=== PATIENT | female | born 1940 | race Caucasian/White ===

== ENCOUNTER 2023-10-06 08:48 | Outpatient (RCR) | payer OTHER, SELFPAY | END 2023-10-08 14:46 | disposition home or self-care (01) | LOC: RPT 08:48 | PROVIDERS: ATTENDING PHYSICIAN Internal Medicine; FAMILY PHYSICIAN Nurse Practitioner Adult Health | DX: M54.16 Radiculopathy, lumbar region (principal); Z73.6 Limitation of activities due to disability | CPT/HCPCS: 97110 ==

== ENCOUNTER → 2023-11-26 13:23 | Outpatient (REF) | payer OTHER, SELFPAY | LOC: RAD 13:23 | PROVIDERS: ATTENDING PHYSICIAN Nurse Practitioner Adult Health | DX: R05.1 Acute cough (principal) | CPT/HCPCS: 71046 ==

== ENCOUNTER → 2023-12-09 13:25 | Outpatient (REF) | payer OTHER, SELFPAY | LOC: RAD 13:25 | PROVIDERS: ATTENDING PHYSICIAN Nurse Practitioner Adult Health | DX: R39.9 Unspecified symptoms and signs involving the genitourinary system (principal); M54.50 Low back pain, unspecified; R10.32 Left lower quadrant pain | CPT/HCPCS: 76770 ==

== ENCOUNTER → 2024-03-21 10:37 | Outpatient (REF) | payer OTHER, SELFPAY | LOC: WDC 10:37 | PROVIDERS: ATTENDING PHYSICIAN Nurse Practitioner Adult Health | DX: Z12.31 Encounter for screening mammogram for malignant neoplasm of breast (principal) | CPT/HCPCS: 77063; 77067 ==

== ENCOUNTER → 2024-06-01 09:39 | Outpatient (REF) | payer OTHER, SELFPAY | LOC: PAVMRI 09:39 | PROVIDERS: ATTENDING PHYSICIAN Orthopaedic Surgery | DX: M54.16 Radiculopathy, lumbar region (principal) | CPT/HCPCS: 72148 ==

== ENCOUNTER → 2024-07-06 11:53 | Outpatient (REF) | payer OTHER, SELFPAY | LOC: RAD 11:53 | PROVIDERS: ATTENDING PHYSICIAN Nurse Practitioner Adult Health | DX: Z01.810 Encounter for preprocedural cardiovascular examination (principal); R09.89 Other specified symptoms and signs involving the circulatory and respiratory systems | CPT/HCPCS: 93975 ==

== ENCOUNTER → 2024-07-10 08:54 | Outpatient (REF) | payer OTHER, SELFPAY | LOC: HWRAD 08:54 | PROVIDERS: ATTENDING PHYSICIAN Nurse Practitioner Adult Health | DX: R09.89 Other specified symptoms and signs involving the circulatory and respiratory systems (principal) | CPT/HCPCS: 36415; 74174; Q9967 ==

== ENCOUNTER 2024-07-12 06:26 | Day surgery (SDC) | payer OTHER, SELFPAY ==
[2024-06-22 12:45] VITALS: BMI 24.6
[2024-06-22 14:09] LABS: Hematocrit 40.8 % (37.0-47.0); Hemoglobin 14.2 g/dL (12.0-16.0); Mean Corp Hgb Conc. 34.8 g/dL (33.0-37.0); Mean Corpuscular Hgb 32.5 pg (27.0-31.0); Mean Corpuscular Volume 93.4 fL (81.0-99.0); Mean Platelet Volume 10.3 fL (7.4-10.4); Platelet Count 232 10^3/uL (130-400); Red Blood Cell Count 4.37 10^6/uL (4.20-5.40); Red Cell Dist. Width 12.3 % (11.5-14.5); White Blood Cell Count 6.3 10^3/uL (4.8-10.8)
[2024-06-22 14:15] LABS: ALT (SGPT) 28 U/L (0-35); AST (SGOT) 39 U/L (14-36); Albumin 4.6 g/dl (3.5-5.0); Alkaline Phosphatase 85 U/L (38-126); Blood Urea Nitrogen 32 mg/dl (7-17); Calcium 9.9 mg/dl (8.4-10.2); Carbon Dioxide 27 mmol/L (22-30); Chloride 103 mmol/L (98-107); Estimated Creatinine Clearance 40 ml/min; Glucose 156 mg/dl (70-99); Potassium 4.2 mmol/L (3.5-5.1); Sodium 141 mmol/L (135-145); Total Bilirubin 0.7 mg/dl (0.2-1.3)
[2024-06-23 09:28] LABS: Glycohemoglobin (HgbA1c) 5.3 % (4.0-5.6)
--- NOTE | 2024-07-11 15:43 | PTCARENOTE ---
Abnormal EKG. Dr. Biswas aware. No intervention required.
--- NOTE | 2024-07-11 16:19 | VNURNOTE ---
Chart reviewed. SDS / PSR 07/[address] Bingham. Call placed to patient to inquire about post-op plans: [facility]. No answer.
[2024-07-12] VITALS (23 sets, daily range): BP systolic 96–170; BP diastolic 49–94; PULSE 95; O2SAT 96; BMI 24.6
[2024-07-12] MEDS: TYLENOL 650 MG PO ×4 (07:36→23:40)
[2024-07-12] MEDS: CELEBREX 200 MG PO (07:37)
[2024-07-12] MEDS: NORMOSOL-R/PLASMALYTE-A 1000 IV (08:01)
[2024-07-12] MEDS: ROXICODONE 5 MG PO ×3 (11:53→23:58)
[2024-07-12] MEDS: NSS 1000 IV (12:06)
[2024-07-12] MEDS: MORPHINE SULFATE 1 MG IV ×2 (12:13→12:20)
[2024-07-12] MEDS: DILAUDID 0.25 MG IV (13:44)
--- NOTE | 2024-07-12 14:05 | W.PN.ORTHO ---
Today's Communication / Plan
-
D/c when clinically stable
Assessment
.
Distal Motor Intact: Yes
Dressing:
Scant areas of incisional bleeding.
Assessment:
L knee OA s/p L TKA w/ Dr Bingham 07/12/24
- s/p R TKA, 12/2021, and R JESUS, 04/2021, by Dr Bradley Bingham
DVT prophylaxis - ASA, b/l venous foot pumps
HTN - + parameters - monitor BP
CKD 3 - minimize nephrotoxins
Splenic lesions of unknown etiology on abdominal/pelvic CTA 06/2024 - abdominal MRI w/u in near future
Chronically elevated AST - reduce max daily dose of Tylenol
Hyperlipidemia
Aortic atherosclerosis
Diverticulitis, status post sigmoidectomy
Small bowel obstruction secondary to adhesions, status post laparoscopic lysis of adhesions
Migraines
Multilevel DDD
Glaucoma
Depression
Anxiety
Osteopenia
Plan
.
Surgery / Date: L TKA w/ Dr Bingham 07/12/24
DVT Prophylaxis: Aspirin
Activity:
Out of bed.
PT/OT
Discharge Plan: Home w/ Outpatient PT
Subjective
.
.:
Patient examined resting in PACU.
L knee/thigh pain 03/27 but medicated recently w/ IV Dilaudid.
Denies any other new significant complaints.
Vital Signs and Labs
.
Vital Signs and Labs:
Lab Results
06/22/24 12:52
06/22/24 12:52
Temp Pulse Resp BP Pulse Ox
95.9 F L 76 13 123/62 97
07/12/24 07:44 07/12/24 10:00 07/12/24 10:00 07/12/24 10:00 07/12/24 10:00
Physical Exam
-
HEENT: No pallor, cyanosis, or jaundice. Throat clear.
NECK: Supple. No JVD.
RESPIRATORY: Lungs clear to auscultation.
CVS: S1, S2 normal. RRR.�
ABDOMEN: Soft, non-tender. No distension.
EXTREMITIES: Strength equal, no calf pain with palpation/dorsiflexion. Calves soft
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 No focal deficits. client advisor grossly intact
[2024-07-12] MEDS: TORADOL 15 MG IV (14:14)
[2024-07-12] MEDS: TYLENOL PO (14:57)
--- NOTE | 2024-07-12 15:52 | PTCARENOTE ---
Pt received from the PACU via bed. Transport was w/o incident. Pt is AAOx3, HRR, lungs are clear, resp. easy. Pulse ox 93%RA. Pt denies nausea and reports her pain level now 3/10 on pain scale, and reports she will call nurse when she feels she
needs more pain medicine. Pt's left knee with Primaseal dressing C/D/I w/ scant spot of shadowing, no current bleeding noted. Pt instructed on plan of care. Pt verbalized understanding of instructions. Call gordillo is within reach.
[2024-07-12] MEDS: LIDOCAINE 4% PATCH 2 PATCH TOPICAL (17:20)
[2024-07-12] MEDS: ZYRTEC 10 MG PO (17:20)
[2024-07-12] MEDS: ZESTRIL 5 MG PO (17:20)
[2024-07-12] MEDS: ASPIRIN 325 MG PO (17:21)
[2024-07-12] MEDS: CRESTOR 5 MG PO (17:21)
[2024-07-12] MEDS: VITAMIN B-12 1000 MCG PO (17:23)
[2024-07-12] MEDS: VITAMIN D3 (cholecalciferol) 25 MCG PO (17:23)
[2024-07-12] MEDS: ANCEF 5 IV ×2 (17:23→23:40)
[2024-07-12] MEDS: NEURONTIN 100 MG PO ×2 (17:23→22:20)
[2024-07-12] MEDS: SENOKOT 17.2 MG PO (20:35)
[2024-07-12] MEDS: DECADRON 4 MG PO (20:35)
[2024-07-12] MEDS: COLACE 100 MG PO (20:35)
[2024-07-12] MEDS: BACTROBAN 2% OINTMENT 1 APPLIC NASAL (20:36)
[2024-07-12] MEDS: PEPCID 20 MG PO (22:20)
[2024-07-13 03:10] VITALS: BP 107/66
[2024-07-13] MEDS: ROXICODONE 5 MG PO ×2 (04:13→08:01)
[2024-07-13] MEDS: TYLENOL 650 MG PO ×2 (05:38→12:01)
[2024-07-13 07:15] VITALS: BP 102/57
[2024-07-13] MEDS: SENOKOT 17.2 MG PO (07:59)
[2024-07-13] MEDS: CRESTOR 5 MG PO (07:59)
[2024-07-13] MEDS: ASPIRIN 325 MG PO (07:59)
[2024-07-13] MEDS: NEURONTIN 100 MG PO (07:59)
[2024-07-13] MEDS: DECADRON 4 MG PO (08:00)
[2024-07-13] MEDS: ZYRTEC 10 MG PO (08:00)
[2024-07-13] MEDS: VITAMIN B-12 1000 MCG PO (08:00)
[2024-07-13] MEDS: COLACE 100 MG PO (08:00)
[2024-07-13] MEDS: VITAMIN D3 (cholecalciferol) 25 MCG PO (08:00)
[2024-07-13] MEDS: ZESTRIL PO (08:00)
[2024-07-13] MEDS: BACTROBAN 2% OINTMENT 1 APPLIC NASAL (08:01)
[2024-07-13] MEDS: LIDOCAINE 4% PATCH 2 PATCH TOPICAL (08:02)
[2024-07-13 10:57] VITALS: BP 99/57; PULSE 75; O2SAT 98
[2024-07-13 11:10] VITALS: BP 99/60
--- NOTE | 2024-07-13 12:33 | CM ---
Met with ot and her daughter at bedside
Pt reports she lives alone in a ranch-style home; 1 step to enter
Daughter plans to stay with pt initially
Pt reports independent, active, driving prior to admission
DME - rolling walker, raise toilet seat, single point cane, shower and toilet rails
SNF/HH - no past hx
Has ride at discharge
PCP - Kath Oh
Pharm - [facility]
PT recs - outpatient PT. Has appointment scheduled on Wednesday. Has Rx
Plan - home with outpatient PT
--- NOTE | 2024-07-13 13:18 | W.PN.ORTHO ---
Today's Communication / Plan
-
D/c today since clinically stable, did well w/ PT and OT.
Assessment
.
Distal Motor Intact: Yes
Dressing:
Scant areas of old incisional bleeding.
Assessment:
L knee OA s/p L TKA w/ Dr Bingham 07/12/24
- s/p R TKA, 12/2021, and R JESUS, 04/2021, by Dr Bradley Bingham
DVT prophylaxis - ASA, b/l venous foot pumps
HTN - + parameters - BPs overall stable
CKD 3 - minimize nephrotoxins
Splenic lesions of unknown etiology on abdominal/pelvic CTA 06/2024 - abdominal MRI w/u in near future
Chronically elevated AST - reduced max daily dose of Tylenol
Hyperlipidemia
Aortic atherosclerosis
Diverticulitis, status post sigmoidectomy
Small bowel obstruction secondary to adhesions, status post laparoscopic lysis of adhesions
Migraines
Multilevel DDD
Glaucoma
Depression
Anxiety
Osteopenia
Plan
.
Surgery / Date: L TKA w/ Dr Bingham 07/12/24
DVT Prophylaxis: Aspirin
Activity:
Out of bed.
PT/OT
Discharge Plan: Home w/ Outpatient PT
Subjective
.
.:
Patient resting comfortably in her chair.
L knee pain well tolerated w/ current pain meds.
Denies any new significant complaints.
Eager for potential d/c today.
Vital Signs and Labs
.
Vital Signs and Labs:
Lab Results
06/22/24 12:52
06/22/24 12:52
Temp Pulse Resp BP Pulse Ox
97.5 F 88 18 99/60 97
07/13/24 11:10 07/13/24 11:10 07/13/24 11:10 07/13/24 11:10 07/13/24 11:10
Non-invasive Hgb result: 11.4
Physical Exam
-
HEENT: No pallor, cyanosis, or jaundice. Throat clear.
NECK: Supple. No JVD.
RESPIRATORY: Lungs clear to auscultation.
CVS: S1, S2 normal. RRR.�
ABDOMEN: Soft, non-tender. No distension.
EXTREMITIES: Strength equal, no calf pain with palpation/dorsiflexion. Calves soft.
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 No focal deficits. document preparation specialist grossly intact
--- NOTE | 2024-07-13 13:30 | W.DS.TRANS ---
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
-
Discharge Instructions:
Sleep Apnea Risk Low
Discharge Diagnosis/Procedures L knee OA s/p L TKA w/ Dr Narvaez 07/13/24
Diet Other diet
Additional Diets Diabetic carb controlled x1 week for wound
healing/infection prevention
Activity As tolerated,With Walker
Driving Restrictions Not until seen by your Dr
Bathing Restrictions OK to Shower
Other Services PT
Wound Care Dressing to be removed 1 week post-surgery.
Instructions:
Stand-Alone Forms: Total Hip/Knee Replacement D/C
Changes to Home Medications: Yes
Discharge Medications:
DC Medications w/original date entered in [facility]
epinephrine 0.3 mg/0.3 mL injection, auto-injector (EpiPen) 0.3 mg (0.3 mL) IM PRN PRN prn for allergic reaction #1 mL 05/11/13
cyanocobalamin (vitamin B-12) 1,000 mcg tablet 1,000 mcg PO DAILY 04/02/21
denosumab 60 mg/mL subcutaneous syringe (Prolia) 60 mg SQ .Q6 MONTHS 04/02/21
rosuvastatin 5 mg tablet 5 mg PO DAILY 04/02/21
cetirizine 10 mg tablet 10 mg PO DAILY 12/05/21
ascorbic acid (vitamin C) 1,000 mg tablet (Vitamin C) 1,000 mg PO DAILY 07/06/24
calcium carbonate (Calcium 600) 600 mg PO DAILY 07/06/24
cholecalciferol (vitamin D3) 25 mcg (1,000 unit) capsule (Vitamin D3) 25 mcg PO DAILY 07/06/24
acetaminophen 500 mg tablet 1,000 mg (2 x 500 mg) PO Q8H #60 tabs 07/13/24
aspirin 325 mg tablet 325 mg PO DAILY #30 tabs 07/13/24
dexamethasone 4 mg tablet 4 mg PO Q12H #7 tabs 07/13/24
docusate sodium 100 mg capsule 100 mg PO BID #30 caps 07/13/24
gabapentin 100 mg capsule 100 mg PO TID neuropathic pain #30 caps 07/13/24
lidocaine 4 % topical patch 2 patch topical DAILY #30 ea 07/13/24
lisinopril 5 mg tablet 5 mg PO DAILY #1 tab 07/13/24
ondansetron HCl 4 mg tablet 4 mg PO Q6H PRN nausea and vomiting #1 tab 07/13/24
oxycodone 5 mg tablet 5 - 10 mg (1 - 2 x 5 mg) PO Q6H PRN moderate-severe pain #30 tabs 07/13/24
sennosides 8.6 mg tablet (Senna Laxative) 17.2 mg (2 x 8.6 mg) PO BID #30 tabs 07/13/24
Home Medication Changes
acetaminophen 500 mg tablet 1,000 mg (2 x 500 mg) PO Q8H #60 tabs 07/13/24
aspirin 325 mg tablet 325 mg PO DAILY #30 tabs 07/13/24
dexamethasone 4 mg tablet 4 mg PO Q12H #7 tabs 07/13/24
docusate sodium 100 mg capsule 100 mg PO BID #30 caps 07/13/24
gabapentin 100 mg capsule 100 mg PO TID neuropathic pain #30 caps 07/13/24
lidocaine 4 % topical patch 2 patch topical DAILY #30 ea 07/13/24
ondansetron HCl 4 mg tablet 4 mg PO Q6H PRN nausea and vomiting #1 tab 07/13/24
oxycodone 5 mg tablet 5 - 10 mg (1 - 2 x 5 mg) PO Q6H PRN moderate-severe pain #30 tabs 07/13/24
sennosides 8.6 mg tablet (Senna Laxative) 17.2 mg (2 x 8.6 mg) PO BID #30 tabs 07/13/24
Pending Results: No
== END 2024-07-13 14:35 | disposition home or self-care (01) ==
LOC: SDS 06:26
PROVIDERS: ATTENDING PHYSICIAN Orthopaedic Surgery; FAMILY PHYSICIAN Nurse Practitioner Adult Health
DX: M17.12 Unilateral primary osteoarthritis, left knee (principal); I12.9 Hypertensive chronic kidney disease with stage 1 through stage 4 chronic kidney disease, or unspecified chronic kidney disease; N18.30 Chronic kidney disease, stage 3 unspecified
CPT/HCPCS: 27447; 36415; 73560; 80053; 83036; 85027; 87070; 93005; 97110; 97116; 97162; 97166; 97535; C1713; C1776

== ENCOUNTER 2024-08-15 06:26 | Outpatient (RCR) | payer OTHER, SELFPAY | END 2024-08-15 23:59 | disposition home or self-care (01) | LOC: RPT 06:26 | PROVIDERS: ATTENDING PHYSICIAN Physician Assistant; FAMILY PHYSICIAN Nurse Practitioner Adult Health | DX: Z47.1 Aftercare following joint replacement surgery (principal); Z96.652 Presence of left artificial knee joint; Z73.6 Limitation of activities due to disability | CPT/HCPCS: 97010; 97110; 97140; 97162; 97530 ==

== ENCOUNTER 2024-08-22 09:50 | Outpatient (RCR) | payer OTHER, SELFPAY | END 2024-08-22 23:59 | disposition home or self-care (01) | LOC: RPT 09:50 | PROVIDERS: ATTENDING PHYSICIAN Physician Assistant; FAMILY PHYSICIAN Nurse Practitioner Adult Health | DX: Z47.1 Aftercare following joint replacement surgery (principal); M17.12 Unilateral primary osteoarthritis, left knee; Z73.6 Limitation of activities due to disability; R26.89 Other abnormalities of gait and mobility; M62.81 Muscle weakness (generalized); Z96.652 Presence of left artificial knee joint | CPT/HCPCS: 97010; 97110; 97140 ==

== ENCOUNTER → 2024-09-07 08:02 | Outpatient (REF) | payer OTHER, SELFPAY | LOC: PAVMRI 08:02 | PROVIDERS: ATTENDING PHYSICIAN Nurse Practitioner Adult Health | DX: D73.89 Other diseases of spleen (principal) | CPT/HCPCS: 74183; A9575 ==

== ENCOUNTER 2024-10-17 09:50 | Outpatient (RCR) | payer OTHER, SELFPAY | END 2024-10-17 23:59 | disposition home or self-care (01) | LOC: RPT 09:50 | PROVIDERS: ATTENDING PHYSICIAN Physician Assistant; FAMILY PHYSICIAN Nurse Practitioner Adult Health | DX: Z47.1 Aftercare following joint replacement surgery (principal); M17.12 Unilateral primary osteoarthritis, left knee; Z73.6 Limitation of activities due to disability; R26.89 Other abnormalities of gait and mobility; M62.81 Muscle weakness (generalized); Z96.652 Presence of left artificial knee joint | CPT/HCPCS: 97110; 97530 ==

== ENCOUNTER → 2024-12-14 12:17 | Outpatient (REF) | payer OTHER, SELFPAY | LOC: HWRAD 12:17 | PROVIDERS: ATTENDING PHYSICIAN Nurse Practitioner Adult Health | DX: M54.2 Cervicalgia (principal); D64.9 Anemia, unspecified; R10.32 Left lower quadrant pain; D73.89 Other diseases of spleen | CPT/HCPCS: 72040; 74176 ==

== ENCOUNTER 2025-02-15 06:22 | Day surgery (SDC) | payer OTHER, SELFPAY | END 2025-02-15 10:12 | disposition home or self-care (01) | LOC: GI 06:22 | PROVIDERS: ATTENDING PHYSICIAN Specialist | DX: R19.7 Diarrhea, unspecified (principal); K57.30 Diverticulosis of large intestine without perforation or abscess without bleeding; Z98.0 Intestinal bypass and anastomosis status | CPT/HCPCS: 45380; 88305 ==

== ENCOUNTER → 2025-04-13 11:38 | Outpatient (REF) | payer OTHER, SELFPAY | LOC: WDC 11:38 | PROVIDERS: ATTENDING PHYSICIAN Nurse Practitioner Adult Health | DX: Z12.31 Encounter for screening mammogram for malignant neoplasm of breast (principal) | CPT/HCPCS: 77063; 77067 ==

== ENCOUNTER → 2025-05-16 13:40 | Outpatient (REF) | payer OTHER, SELFPAY | LOC: RAD 13:40 | PROVIDERS: ATTENDING PHYSICIAN Internal Medicine; FAMILY PHYSICIAN Nurse Practitioner Adult Health | DX: M81.0 Age-related osteoporosis without current pathological fracture (principal) | CPT/HCPCS: 77080 ==

== ENCOUNTER → 2025-07-18 08:23 | Emergency (ER) | payer OTHER, SELFPAY ==
[2025-07-18 08:28] VITALS: BP 184/95
--- NOTE | 2025-07-18 08:40 | ED.GENMED ---
History of Present Illness
General
Chief Complaint: Blood Pressure Problem
Source: patient
Exam Limitations: none
Time Seen by Provider: 07/18/25 08:40
Nursing documentation reviewed up to this point in time: agreed with
History of Present Illness
History of Present Illness:
84-year-old female with history of HTN, diverticulitis, presents for high blood pressure. She states she woke yesterday and just 'did not feel right.' She saw her PCP Samir Oh who increased her lisinopril from 5 mg to 10 mg daily. She took
her first increased dose today and feels 'better.' Patient states she had trouble sleeping last night, just restless, thinking about admitting she was supposed to attend today and this morning when she got up felt her heart 'beating fast and got
sweaty and felt a little nauseous.' She states it feels like pressure on her chest. She denies the symptoms at this time. She denies SOB, abdominal pain, back pain. She denies weakness, numbness or tingling in her extremities. Hide good morning
Past History
Past History
ED Past Medical History: HTN and Other (History of migraines, diverticulosis, diverticulitis, history of bowel obstruction, arthritis)
ED Past Surgical History: Orthopedic (Right hip replacement, left knee replacement) and Other (Dental surgeries, and sigmoidectomy in 2006)
Social History
Tobacco: Non-smoker
Alcohol: None
Personal:
Living: other ([place])
Employment: Retired
Review of Systems
Review of Systems
Allergies reviewed?: Yes
All Other Systems: ROS reviewed and negative except as documented in HPI and ROS
Phy Exam
Physical Exam
Physical Exam:
GENERAL: No acute distress. A&Ox3.
CONSTITUTIONAL: Afebrile.
EYES: clear, conjunctivae normal
ENMT: moist mucus membranes, Pharynx nl
RESPIRATORY: Regular respirations, nonlabored, lungs clear.
CARDIOVASCULAR: Regular rate and rhythm, no murmurs, no rubs.
GI: Soft, nontender, normal BS
MUSCULOSKELETAL: Moves with ease. Well perfused.
SKIN: Warm, dry, pink
PSYCH: Normal mood and affect. Well kept, interactive and appropriate
NEUROLOGIC: Awake, alert and oriented. No focal neurological deficits
Course
Orders/Labs/Results
Orders:
Orders
07/18/25 09:16
Electrocardiogram (*1) Urgent
Reason for Study: Palpitations
EKG- Treatment ONCE
07/18/25 09:17
CR Chest - 2 Views Urgent
Comment:
Reason For Exam: palpitations
07/18/25 09:27
Comprehensive Metabolic Panel Urgent
07/18/25 09:28
Complete Blood Count/With Diff Urgent
Troponin I Urgent
Urinalysis Reflex To Culture Urgent
Date Specimen was Collected: 07/18/25
Time Specimen was Collected: 09:19
Urine Microscopic Reflex Cult Urgent
Urine Culture Urgent
TAB Source: U
Specimen Description:
Date Specimen was Collected: 07/18/25
Time Specimen was Collected: 09:19
Abnormal Lab Results
07/18/25 07/18/25
09:27 09:28
MCH 32.5 H pg
(27.0-31.0)
Lymphocytes % 20.4 L %
(20.5-51.1)
Glucose 109 H mg/dl
(70-99)
Leukocyte Esterase Rfl 1+ A
(Negative)
Urine Bacteria (Reflex) Few A
(Negative)
Urine Albumin (Reflex) 1+ A
(Neg - Trace)
07/18/25 09:28
07/18/25 09:27
Vital Signs
Initial and Last Documented VS:
Initial Vital Signs
Temp Pulse Resp BP Pulse Ox
98.4 F 82 18 184/95 97
07/18/25 08:28 07/18/25 08:28 07/18/25 08:28 07/18/25 08:28 07/18/25 08:28
Last Documented Vital Signs
Temp Pulse Resp BP Pulse Ox
98.4 F 69 15 162/67 98
07/18/25 08:28 07/18/25 10:41 07/18/25 10:41 07/18/25 11:37 07/18/25 11:40
MDM/Problems Addressed
Differential Diagnosis Includes:
CA, dehydration, UTI
MDM/Problems Addressed:
84-year-old female with history of HTN, diverticulitis, presents for high blood pressure. She states she woke yesterday and just 'did not feel right.' She saw her PCP Samir Oh who increased her lisinopril from 5 mg to 10 mg daily. She took
her first increased dose today and feels 'better.' Patient states she had trouble sleeping last night, just restless, thinking about admitting she was supposed to attend today and this morning when she got up felt her heart 'beating fast and got
sweaty and felt a little nauseous.' She states it feels like pressure on her chest. She denies the symptoms at this time. She denies SOB, abdominal pain, back pain. She denies weakness, numbness or tingling in her extremities.
She was treated for UTI 10 days ago, put on Cipro for 5 days but only finished 3 days of it as it made her nauseous.
11:30 AM:
CBC normal
CMP normal
Troponin WNL
UA negative
Chest x-ray: Pulmonary findings suggestive of changes of COPD, no acute pneumonia otherwise unremarkable
BP now 162/67
Patient has remained asymptomatic since arrival, she is stable for discharge.
*Pulse Oximetry
SaO2: 97
Patient hypoxic: no
*Critical Care Note
Total Time (30-74mins, 75-104mins- exclusive of procedures): Not Applicable
ED Attending Note
-
Portions of this chart may have been created with voice recognition software.� Occasional wrong word or��sound alike� substitutions may have occurred due to the inherent limitations of voice recognition software.
Discharge Plan
Departure
Patient Disposition: Home (Routine Discharge)
Date of Disposition: 07/18/25
Time of Disposition: 11:34
Patient with high blood pressure during this ER visit?: No
Condition: Good
Discharge Problem:
Atypical chest pain, Hypertension, Heart palpitations
Instructions: High Blood Pressure (DC), Palpitations - ED (DC)
Prescriptions:
No Action
epinephrine [EpiPen] 0.3 MG/0.3/SYRINGE auto-injector
0.3 mg IM PRN PRN (Reason: prn for allergic reaction) Qty: 1 2RF
cyanocobalamin (vitamin B-12) 1,000 MCG tablet
1,000 mcg PO DAILY
rosuvastatin 5 MG tablet
5 mg PO DAILY
Prolia 60 MG/ML syringe
60 mg SQ .Q6 MONTHS
cetirizine 10 MG tablet
10 mg PO DAILY
ascorbic acid (vitamin C) [Vitamin C] 1,000 mg Tablet
1,000 mg PO DAILY
cholecalciferol (vitamin D3) [Vitamin D3] 25 mcg (1,000 unit) Capsule
25 mcg PO DAILY
calcium carbonate [Calcium 600] 600 mg calcium (1,500 mg) Tablet
600 mg PO DAILY
docusate sodium 100 mg Capsule
100 mg PO BID Qty: 30 0RF
lidocaine 4 % Adhesive Patch,Medicated
2 patch topical DAILY Qty: 30 0RF
Rx Instructions:
Over the counter. 12 hours on, 12 hours off.
Apply to sides of left knee/thigh.
gabapentin 100 mg Capsule
100 mg PO TID Qty: 30 0RF
sennosides [Senna Laxative] 8.6 mg Tablet
17.2 mg PO BID Qty: 30 0RF
aspirin 325 mg Tablet
325 mg PO DAILY Qty: 30 0RF
Rx Instructions:
Take daily x4 weeks for blood clot prevention; then resume Aspirin 81 mg daily.
ondansetron HCl 4 mg Tablet
4 mg PO Q6H PRN (Reason: nausea and vomiting) Qty: 1 0RF
Rx Instructions:
Prescribed by surgeon's office pre-op.
acetaminophen 500 mg Tablet
1,000 mg PO Q8H Qty: 60 0RF
Rx Instructions:
DO NOT exceed >3000 mg daily.
dexamethasone 4 mg Tablet
4 mg PO Q12H Qty: 7 0RF
Rx Instructions:
Restart night of discharge and continue every 12 hours until finished.
Take with food.
lisinopril 5 MG tablet
5 mg PO DAILY Qty: 1 0RF
Rx Instructions:
HOLD IF systolic blood pressure <130 while on Oxycodone.
oxycodone 5 mg Tablet
5 - 10 mg PO Q6H PRN (Reason: moderate-severe pain) Qty: 30 0RF
Rx Instructions:
1 tab for moderate pain, 2 if severe.
Dx total joint.
Referrals:
Kath Oh CRNP [Family Provider, General]
Activity Restrictions/Additional Instructions:
As we discussed, nothing worrisome in your workup here today. Continue your lisinopril 10 mg daily.
Your blood work including kidney function is normal.
Your EKG and Chest xray show nothing worrisome.
Please discuss lab finding with your healthcare provider.
Interventions
Interventions:
*Risk Screen - Suicide Last Done: 07/18/25 08:28
*General Assessment Last Done: 07/18/25 08:28
*Neglect/Abuse Screening Last Done: 07/18/25 08:28
*Nursing Disposition Last Done: 07/18/25 11:44
Discharge Date and Time
Print Language: OCCITAN
[2025-07-18 09:30] VITALS: BP 170/73
[2025-07-18 09:40] LABS: Hematocrit 43.7 % (37.0-47.0); Hemoglobin 15.1 g/dL (12.0-16.0); Mean Corp Hgb Conc. 34.6 g/dL (33.0-37.0); Mean Corpuscular Volume 94.0 fL (81.0-99.0); Nucleated Red Blood Cells % 0 %; Platelet Count 216 10^3/uL (130-400); Red Cell Dist. Width 12.1 % (11.5-14.5)
[2025-07-18 09:55] LABS: ALT (SGPT) 25 U/L (0-35); AST (SGOT) 32 U/L (14-36); Albumin 4.5 g/dl (3.5-5.0); Alkaline Phosphatase 66 U/L (38-126); Blood Urea Nitrogen 16 mg/dl (7-17); Calcium 9.4 mg/dl (8.4-10.2); Carbon Dioxide 27 mmol/L (22-30); Chloride 106 mmol/L (98-107); Glucose 109 mg/dl (70-99); Potassium 4.8 mmol/L (3.5-5.1); Sodium 138 mmol/L (135-145); Total Protein 7.3 g/dl (6.3-8.2); eGFR 55.55
[2025-07-18 10:00] VITALS: BP 151/64
[2025-07-18 10:07] LABS: Urine Character Clear (Clear)
[2025-07-18 10:21] LABS: Troponin I < 0.012 ng/ml
[2025-07-18 10:33] LABS: Urine Squamous Cell >30 /LPF (Few)
[2025-07-18 10:35] LABS: Urine Red Blood Cell 0-2 /HPF (0-2)
[2025-07-18 11:37] VITALS: BP 162/67
== END | disposition home or self-care (01) ==
LOC: EMR 08:23
PROVIDERS: Registered Nurse; EMERGENCY PHYSICIAN Emergency Medicine; FAMILY PHYSICIAN Nurse Practitioner Adult Health
DX: R07.89 Other chest pain (principal); I10 Essential (primary) hypertension; R00.2 Palpitations; Z79.899 Other long term (current) drug therapy
CPT/HCPCS: 99285; 71046; 80053; 81003; 81015; 84484; 85025; 87086; 93005

== ENCOUNTER → 2025-10-04 13:27 | Outpatient (REF) | payer OTHER, SELFPAY | LOC: RAD 13:27 | PROVIDERS: ATTENDING PHYSICIAN Internal Medicine; FAMILY PHYSICIAN Nurse Practitioner Adult Health | DX: M54.50 Low back pain, unspecified (principal) | CPT/HCPCS: 72100 ==